=== PATIENT | male | born 1960 | race Caucasian/White ===

== ENCOUNTER 2021-02-12 08:05 | Inpatient (IN) | payer OTHER ==
[~2021-02-12] VITALS: Ht 185.4 cm; Wt 120.5 kg
--- NOTE | 2021-02-12 08:24 | NUR ---
PT WITH C/O FEELING "SICK" ABDOMINAL DISCOMFORT LLQ AND NO BM X1 WEEK. PT STATES HE HAS BEEN TAKING TUMS AND THAT HAS BEEN HELPING BUT HE HAD RAN OUT. PT WITH HX CHOLECYSTECOMY, DENIES VOMITTING +NAUSEA, MEDICATED WITH [employer]. PT TO BP, CONT PULSE OX. AWAITING ED MD EVAL/ ORDERS
--- NOTE | 2021-02-12 08:49 | NUR ---
PT ASKED MULTIPLE TIMES TO PLACE MASK ON SO THIS RN CAN START IV. PT REFUSING AT THIS TIME, EDUCATED PT NEED FOR IV AND FOR CT/LABS. DELAY IN CARE, PT WILL PLACE MASK WHEN "READY"
[2021-02-12] MEDS ORDERED: SODIUM CHLORIDE 0.9% 1,000ML IVBOLUS ONE ×2 (09:00→11:00)
--- NOTE | 2021-02-12 09:15 | NUR ---
PT NOW AGREEABLE TO WEAR MASK. PIV INITIATED AND LABS DRAWN. UA COLLECTED AND SENT TO LAB. PT MEDICATED PER MAR
[2021-02-12 09:19] LABS: PH, VENOUS 7.331 pH (7.320-7.420)
[2021-02-12 09:22] LABS: BASOPHILS % (AUTO) 0 % (0-1); EOSINOPHILS % (AUTO) 0 % (1-7); FIO2 ROOM AIR %; LYMPHOCYTES % (AUTO) 14 % (22-44); MEAN CORPUSCULAR HEMOGLOBIN 29.9 pg (27.5-34.5); MEAN PLATELET VOLUME 8.3 fL (7.4-10.4); MONOCYTES % (AUTO) 17 % (2-9); NEUTROPHILS % (AUTO) 68 % (42-75); PLATELET COUNT 274 x10^3/uL (130-400); RED BLOOD COUNT 6.19 x10^6/uL (4.38-5.82); RED CELL DISTRIBUTION WIDTH 13.9 % (9.4-14.8)
[2021-02-12 09:35] LABS: MICROSCOPIC NOT IND
--- NOTE | 2021-02-12 09:54 | NUR ---
DELAY IN CARE. LAB TO REDRAW PT, WAITING ON CHEM FOR CT
--- NOTE | 2021-02-12 10:24 | NUR ---
LAB IN FOR REDRAW
[2021-02-12 10:42] LABS: ALBUMIN 2.7 g/dL (3.4-5.0); ANION GAP 20 mmol/L (5-15); CALCIUM 8.5 mg/dL (8.5-10.1); CHLORIDE 96 mmol/L (98-107)
[2021-02-12 10:46] LABS: ALANINE AMINOTRANSFERASE 45 U/L (12-78); ALKALINE PHOSPHATASE 95 U/L (45-117); BILIRUBIN,TOTAL 0.7 mg/dL (0.2-1.0); CREATININE 1.02 mg/dL (0.7-1.3); TOTAL PROTEIN 6.7 g/dL (6.4-8.2)
[2021-02-12 10:54] LABS: ACETONE, SERUM Large (80mg/dL) (Negative)
--- NOTE | 2021-02-12 11:30 | NUR ---
PT TO CT AT THIS TIME
[2021-02-12] MEDS ORDERED: OMNIPAQUE 350 MG/ML, 100ML BOTTLE ONE (11:44)
[2021-02-12] MEDS ORDERED: MIDAZOLAM 1 MG/ML, 2ML ONE (12:16)
[2021-02-12] MEDS ORDERED: MIDAZOLAM 1 MG/ML, 2ML IVPush ONE (12:30)
--- NOTE | 2021-02-12 12:35 | NUR ---
NG TUBE PLACE, PT TOLERATED WELL. LINENS CHANGED, CLOTHES/BELONGIGS PLACED IN BELONGINGS BAG
--- NOTE | 2021-02-12 12:39 | NUR ---
GENERAL SURGERY PAGED.
--- NOTE | 2021-02-12 13:02 | NUR ---
GENERAL SURGERY PAGED AGAIN.
[2021-02-12] MEDS ORDERED: EMPA10TA PO (13:33)
[2021-02-12] MEDS ORDERED: METF500T17 PO (13:33)
[2021-02-12] MEDS ORDERED: RIVA10TA2 PO (13:33)
--- NOTE | 2021-02-12 13:34 | NUR ---
REPORT TO RECIEVING GAMA MALDONADO
[2021-02-12 14:20] VITALS: BP 146/85
[2021-02-12] MEDS: SODIUM CHLORIDE 0.9% 1,000 ML IV SCH ×2 (14:59→22:30)
[2021-02-12] MEDS ORDERED: LORazepam 2 MG/ML, 1ML IVPush ONE (15:00)
[2021-02-12] MEDS ORDERED: ONDANSETRON 2MG/ML, 2ML IVPush PRN (15:00)
[2021-02-12] MEDS: INSULIN LISPRO 100 UNITS/ML, PEN SQ-INSULIN SCH ×2 (17:30→21:04)
[2021-02-12] MEDS ORDERED: HEPARIN 5,000 UNITS/ML, 1ML IV ONE (18:00)
[2021-02-12] MEDS ORDERED: HEPARIN 5,000 UNITS/ML, 1ML IV PRN (18:00)
[2021-02-12 18:27] LABS: INTERNATIONAL NORMALIZED RATIO 1.07 (0.93-1.1); PROTHROMBIN TIME 11.4 Seconds (9.6-11.5)
[2021-02-12] MEDS ORDERED: morphine SULFATE 10 MG/ML, 1ML IVPush PRN (18:30)
[2021-02-12 19:20] LABS: ANION GAP 22 mmol/L (5-15); CALCIUM 8.5 mg/dL (8.5-10.1); CHLORIDE 100 mmol/L (98-107)
[2021-02-12 19:31] VITALS: BP 103/71
[2021-02-12] MEDS ORDERED: INSULIN LISPRO 100 UNIT/ML, 3ML VIAL SQ-INSULIN ONE (20:00)
[2021-02-12] MEDS: HEPARIN 25,000 UNITS/250ML PMX 250 ML IV PRN (22:32)
[2021-02-12] MEDS ORDERED: METOPROLOL 1 MG/ML, 5ML IVPush ONE (23:00)
[2021-02-12] MEDS: FAMOTIDINE 20 MG/2 ML IVPush SCH (23:03)
[2021-02-13 00:57] LABS: ANION GAP 11 mmol/L (5-15); CHLORIDE 107 mmol/L (98-107); CREATININE 0.83 mg/dL (0.7-1.3)
[2021-02-13 01:01] LABS: TROPONIN I < 0.015 ng/mL (0.000-0.045)
[2021-02-13 02:22] VITALS: BP 128/64
[2021-02-13 04:40] LABS: BASOPHILS % (AUTO) 0 % (0-1); EOSINOPHILS % (AUTO) 1 % (1-7); LYMPHOCYTES % (AUTO) 17 % (22-44); MEAN CORPUSCULAR HEMOGLOBIN 29.8 pg (27.5-34.5); MEAN PLATELET VOLUME 8.2 fL (7.4-10.4); MONOCYTES % (AUTO) 16 % (2-9); NEUTROPHILS % (AUTO) 66 % (42-75); PLATELET COUNT 249 x10^3/uL (130-400); RED BLOOD COUNT 5.75 x10^6/uL (4.38-5.82); RED CELL DISTRIBUTION WIDTH 13.9 % (9.4-14.8)
[2021-02-13 04:44] LABS: ANION GAP 12 mmol/L (5-15); CALCIUM 8.1 mg/dL (8.5-10.1); CHLORIDE 106 mmol/L (98-107); CREATININE 0.87 mg/dL (0.7-1.3)
[2021-02-13] MEDS: SODIUM CHLORIDE 0.9% 1,000 ML IV SCH ×3 (06:29→22:30)
[2021-02-13 08:15] VITALS: BP 133/66
[2021-02-13] MEDS: INSULIN LISPRO 100 UNITS/ML, PEN SQ-INSULIN SCH ×4 (08:42→20:42)
[2021-02-13] MEDS: FAMOTIDINE 20 MG/2 ML IVPush SCH ×2 (08:42→20:39)
[2021-02-13] MEDS: DILTIAZEM 125 MG in SODIUM CHLORIDE 0.9% 100 ML IV SCH ×2 (09:08→20:39)
[2021-02-13 12:18] VITALS: BP 123/76
[2021-02-13 12:35] LABS: ANION GAP 10 mmol/L (5-15); CALCIUM 7.9 mg/dL (8.5-10.1); CHLORIDE 106 mmol/L (98-107); CREATININE 0.83 mg/dL (0.7-1.3)
[2021-02-13 18:17] VITALS: BP 117/73
[2021-02-13 18:45] LABS: ANION GAP 9 mmol/L (5-15); CALCIUM 8.1 mg/dL (8.5-10.1); CHLORIDE 107 mmol/L (98-107); CREATININE 0.92 mg/dL (0.7-1.3)
[2021-02-13] MEDS: HEPARIN 25,000 UNITS/250ML PMX 250 ML IV PRN (20:55)
[2021-02-14 01:30] VITALS: BP 107/66
[2021-02-14] MEDS: SODIUM CHLORIDE 0.9% 1,000 ML IV SCH (06:01)
[2021-02-14 07:15] VITALS: BP 98/57
[2021-02-14] MEDS ORDERED: HEPARIN 5,000 UNITS/ML, 1ML IV PRN (07:42)
[2021-02-14] MEDS ORDERED: HEPARIN 25,000 UNITS/250ML PMX 250 ML IV PRN (08:00)
[2021-02-14] MEDS: INSULIN LISPRO 100 UNITS/ML, PEN SQ-INSULIN SCH ×3 (09:11→17:26)
[2021-02-14 12:40] VITALS: BP 117/69
[2021-02-14 15:56] LABS: ANION GAP 12 mmol/L (5-15); CHLORIDE 104 mmol/L (98-107); CREATININE 0.79 mg/dL (0.7-1.3)
[2021-02-14] MEDS ORDERED: POTASSIUM CHLORIDE 20 MEQ TAB.ER.PRT PO ONE (17:00)
[2021-02-14] MEDS ORDERED: RIVAROXABAN 20 MG TABLET PO SCH (17:00)
[2021-02-14] MEDS ORDERED: METF500T17 PO (17:09)
[2021-02-14] MEDS ORDERED: RIVA20TA PO (17:09)
[2021-02-14] MEDS ORDERED: EMPA10TA PO (17:09)
== END 2021-02-14 20:48 | disposition home or self-care (01) | DRG 388 ==
LOC: ED 08:57 → EDIP 12:26 → 4NE 13:54 → 5SO 22:34
PROVIDERS: ADMIT Hospitalist; ATTEND Internal Medicine
PROC: 0D9670Z Drainage of Stomach with Drainage Device, Via Natural or Artificial Opening (ICD-10-PCS; principal; 2021-02-12)
DX: K56.52 Intestinal adhesions [bands] with complete obstruction (principal); E11.10 Type 2 diabetes mellitus with ketoacidosis without coma; D68.59 Other primary thrombophilia; E87.1 Hypo-osmolality and hyponatremia; E87.2 Acidosis; E66.9 Obesity, unspecified; E87.6 Hypokalemia; G47.30 Sleep apnea, unspecified; Z20.822 Contact with and (suspected) exposure to COVID-19; R06.6 Hiccough; I48.0 Paroxysmal atrial fibrillation; Z68.35 Body mass index [BMI] 35.0-35.9, adult; Z79.01 Long term (current) use of anticoagulants; Z86.16 Personal history of COVID-19; Z87.891 Personal history of nicotine dependence; Z90.49 Acquired absence of other specified parts of digestive tract; Z91.14 Patient's other noncompliance with medication regimen
CPT/HCPCS: 36415; 74018; 74250; 96374; 96375; 99285; C8929; 71045; 74177; 80048; 80053; 81003; 82010; 82803; 82962; 83690; 83735; 83930; 84100; 84484; 85025; 85379; 85520; 85610; 87635; 93005; G0378; J1644; J2250; J2405; Q9957; Q9967; J1815; J2060; J7030; Q0161